=== PATIENT | male | born 2000 | race Caucasian/White ===

== ENCOUNTER 2019-02-22 14:30 | Emergency (ER) | payer BC, SELFPAY ==
--- NOTE | 2019-02-22 16:22 | ER ---
Nurse's Notes [facility] Name: Marco A Price Age: 18 yrs Sex: Male : 2000 Arrival Date: 02/22/2019 Time: 14:36 Bed 10 Private MD: Diagnosis: Sprain of other part of left wrist and hand Presentation: 02/22 15:02 Presenting complaint: Patient states: "I think I broke my thumb. I jammed it really bad aj1 and I had someone try to pull it out and it cracked and popped a bunch and that was 2 days ago and the swelling hasn't gone down and I can't move it much". Transition of care: patient was not received from another setting of care. Onset of symptoms was 2018. Risk Assessment: Do you want to hurt yourself or someone else? Patient reports no desire to harm self or others. Initial Sepsis Screen: Does the patient meet any 2 criteria? No. Patient's initial sepsis screen is negative. Does the patient have a suspected source of infection? No. Patient's initial sepsis screen is negative. Care prior to arrival: None. 15:02 Method Of Arrival: Ambulatory aj1 15:02 Acuity: ADRIAN 4 aj1 Triage Assessment: 15:03 General: Appears in no apparent distress. comfortable, Behavior is calm, cooperative, aj1 appropriate for age. Pain: Complains of pain in dorsal aspect of proximal phalanx of left thumb and palmar aspect of proximal phalanx of left thumb Pain currently is 4 out of 10 on a pain scale. Neuro: Level of Consciousness is awake, alert, obeys commands. Cardiovascular: Patient's skin is warm and dry. Respiratory: Airway is patent Respiratory effort is even, unlabored, Respiratory pattern is regular, symmetrical. Musculoskeletal: Range of motion: limited in MCP of left thumb. Historical: - Allergies: 15:03 No Known Allergies; aj1 - Home Meds: 15:03 None [Active]; aj1 - PMHx: 15:03 None; aj1 - PSHx: 15:03 None; aj1 - Immunization history:: Flu vaccine is not up to date. - Social history:: Smoking status: Patient/guardian denies using tobacco, Patient uses vape. - Ebola Screening: : Patient denies travel to an Ebola-affected area in the 21 days before illness onset. Screenin:42 Abuse screen: Denies threats or abuse. Nutritional screening: No deficits noted. hb Tuberculosis screening: No symptoms or risk factors identified. Fall Risk None identified. Assessment: 16:41 General: Appears in no apparent distress. Behavior is calm, cooperative. Pain: hb Complains of pain in CMC of left thumb. Neuro: Level of Consciousness is awake, alert, obeys commands, Oriented to person, place, time, situation. Cardiovascular: Patient's skin is warm and dry. Respiratory: Airway is patent Respiratory effort is even, unlabored. GI: No signs and/or symptoms were reported involving the gastrointestinal system. : No signs and/or symptoms were reported regarding the genitourinary system. Musculoskeletal: Circulation, motion, and sensation intact. Capillary refill < 3 seconds, is brisk, in bilateral fingers. Range of motion: intact in all extremities, Reports pain in CMC of left thumb. Vital Signs: 15:03 BP 110 / 71; Pulse 64; Resp 18; Temp 97.0; Pulse Ox 99% on R/A; Weight 108.86 kg (R); aj1 Height 6 ft. 0 in. (182.88 cm) (R); Pain 4/10; 15:03 Body Mass Index 32.55 (108.86 kg, 182.88 cm) aj1 ED Course: 14:36 Patient arrived in ED. as 15:03 Triage completed. aj1 15:03 Arm band placed on Patient placed in waiting room, Patient notified of wait time. aj1 16:05 Rudolph Christina PA is PHCP. jr8 16:05 Vinicio Rivers MD is Attending Physician. jr8 16:16 Hand Left 3 View XRAY In Process Unspecified. EDMS 16:21 Willie Freeman MD is Referral Physician. jr8 16:39 Brunilda Rick, HRONDA is Primary Nurse. hb 16:41 Patient has correct armband on for positive identification. hb 16:41 No provider procedures requiring assistance completed. Patient did not have IV access hb during this emergency room visit. Administered Medications: No medications were administered Outcome: 16:22 Discharge ordered by . jr8 16:41 Discharged to hb 16:41 Discharged to home ambulatory. 16:41 Condition: good 16:41 Discharge instructions given to patient, Instructed on discharge instructions, follow up and referral plans. Demonstrated understanding of instructions, follow-up care. 16:42 Patient left the ED. hb Signatures: Dispatcher [employer] Tammy Aguirre RN RN aj1 Bruna You Josh, PA PA jr8 Brunilda Rick RN RN hb
--- NOTE | 2019-02-22 16:22 | EDPHYS ---
Physician Documentation [facility] Name: Marco A Price Age: 18 yrs Sex: Male : 2000 Arrival Date: 02/22/2019 Time: 14:36 Bed 10 Private MD: ED Physician Vinicio Rivers HPI: 02/22 16:19 This 18 yrs old Male presents to ER via Ambulatory with complaints of Hand jr8 Pain. 16:19 The patient or guardian reports pain. The complaints affect the CMC of left thumb. Pt jr8 states he "jammed" his hand yesterday at the base of his left thumb. had his friend "pull on it" because he thought it might be dislocated but is still having pain and swelling. Historical: - Allergies: 15:03 No Known Allergies; aj1 - Home Meds: 15:03 None [Active]; aj1 - PMHx: 15:03 None; aj1 - PSHx: 15:03 None; aj1 - Immunization history:: Flu vaccine is not up to date. - Social history:: Smoking status: Patient/guardian denies using tobacco, Patient uses vape. - Ebola Screening: : Patient denies travel to an Ebola-affected area in the 21 days before illness onset. ROS: 16:19 Constitutional: Negative for fever, chills, and weight loss, Eyes: Negative for injury, jr8 pain, redness, and discharge, ENT: Negative for injury, pain, and discharge, Neck: Negative for injury, pain, and swelling, Cardiovascular: Negative for chest pain, palpitations, and edema, Respiratory: Negative for shortness of breath, cough, wheezing, and pleuritic chest pain, Abdomen/GI: Negative for abdominal pain, nausea, vomiting, diarrhea, and constipation, Neuro: Negative for headache, weakness, numbness, tingling, and seizure. 16:19 MS/extremity: Positive for pain, swelling, of the CMC of left thumb. Exam: 16:19 Constitutional: This is a well developed, well nourished patient who is awake, alert, jr8 and in no acute distress. Head/Face: Normocephalic, atraumatic. Eyes: Pupils equal round and reactive to light, extra-ocular motions intact. Lids and lashes normal. Conjunctiva and sclera are non-icteric and not injected. Cornea within normal limits. Periorbital areas with no swelling, redness, or edema. ENT: Nares patent. No nasal discharge, no septal abnormalities noted. Tympanic membranes are normal and external auditory canals are clear. Oropharynx with no redness, swelling, or masses, exudates, or evidence of obstruction, uvula midline. Mucous membranes moist. Neck: Trachea midline, no thyromegaly or masses palpated, and no cervical lymphadenopathy. Supple, full range of motion without nuchal rigidity, or vertebral point tenderness. No Meningismus. Chest/axilla: Normal chest wall appearance and motion. Nontender with no deformity. No lesions are appreciated. Cardiovascular: Regular rate and rhythm with a normal S1 and S2. No gallops, murmurs, or rubs. Normal PMI, no JVD. No pulse deficits. Respiratory: Lungs have equal breath sounds bilaterally, clear to auscultation and percussion. No rales, rhonchi or wheezes noted. No increased work of breathing, no retractions or nasal flaring. 16:19 Musculoskeletal/extremity: Extremities: noted in the CMC of left thumb: pain, swelling, There is no evidence of deformity, erythema, puncture, rash. Vital Signs: 15:03 BP 110 / 71; Pulse 64; Resp 18; Temp 97.0; Pulse Ox 99% on R/A; Weight 108.86 kg (R); aj1 Height 6 ft. 0 in. (182.88 cm) (R); Pain 4/10; 15:03 Body Mass Index 32.55 (108.86 kg, 182.88 cm) aj1 MDM: 16:05 Patient medically screened. jr8 16:20 Data reviewed: vital signs, nurses notes, radiologic studies, plain films. Data jr8 interpreted: Pulse oximetry: on room air is 99 %. Interpretation: normal. Counseling: I had a detailed discussion with the patient and/or guardian regarding: the historical points, exam findings, and any diagnostic results supporting the discharge/admit diagnosis, radiology results, the need for outpatient follow up, a hand specialist, to return to the emergency department if symptoms worsen or persist or if there are any questions or concerns that arise at home. 16:20 ED course: Patient with bruising and swelling to thenar region of left hand. No jr8 identified fracture on imaging. Needs to f/u with hand for ligament and tendon injury. This was discussed with patient and significant other. Both understood . 16:22 ED course: Patient already utilizing preformed splint and does not need another . jr8 02/22 15:05 Order name: Hand Left 3 View XRAY aj1 Administered Medications: No medications were administered Disposition: 17:32 Co-signature as Attending Physician, Vinicio Rivers MD. rn Disposition: 02/22/19 16:22 Discharged to Home. Impression: Sprain of other part of left wrist and hand. - Condition is Stable. - Discharge Instructions: Thumb Sprain. - Medication Reconciliation Form, Thank You Letter, Antibiotic Education, Prescription Opioid Use form. - Follow up: Willie Freeman MD; When: 2 - 3 days; Reason: Recheck today's complaints, Continuance of care, Re-evaluation by your physician. - Problem is new. - Symptoms are unchanged. Signatures: Dispatcher [employer] EDMS Tammy Barrett RN RN aj1 Vinicio Rivers MD MD rn Roszak, Josh, PA PA jr8 Brunilda Rick RN RN Corrections: (The following items were deleted from the chart) 16:42 16:22 02/22/2019 16:22 Discharged to Home. Impression: Sprain of other part of left hb wrist and hand. Condition is Stable. Forms are Medication Reconciliation Form, Thank You Letter, Antibiotic Education, Prescription Opioid Use. Follow up: Willie Freeman; When: 2 - 3 days; Reason: Recheck today's complaints, Continuance of care, Re-evaluation by your physician. Problem is new. Symptoms are unchanged. jr8
--- NOTE | 2019-02-22 16:38 | RAD REPORT ---
EXAM DESCRIPTION: RAD - Hand Left 3 View - 02/22/2019 4:16 pm CLINICAL HISTORY: Trauma, hand pain, hand pain is primarily in the thumb COMPARISON: None. FINDINGS: No fracture, dislocation or periosteal reaction noted. No foreign body or other soft tissu e abnormality. IMPRESSION: Negative left hand examination.
[2019-02-22 17:52] VITALS: BP 110/71; TEMP 97; O2SAT 99
== END 2019-02-22 16:42 | disposition home or self-care (01) ==
LOC: ER 14:30
DX: S63.502A Unspecified sprain of left wrist, initial encounter (principal); W23.0XXA Caught, crushed, jammed, or pinched between moving objects, initial encounter; Y93.9 Activity, unspecified; Y92.9 Unspecified place or not applicable
CPT/HCPCS: 99283